=== PATIENT | male | born 1950 | race Caucasian/White ===

== ENCOUNTER → 2017-02-21 | Outpatient (CLI) | payer BC | LOC: MW.CHIM 08:45 | PROVIDERS: ATTEND Internal Medicine | DX: D64.9 Anemia, unspecified (principal) | CPT/HCPCS: 82270 ==

== ENCOUNTER 2017-10-31 06:40 | Inpatient (IN) | payer BC, MEDICARE ==
[2017-10-31] MEDS: Lactated Ringers 1,000 ML IV SCH ×3 (07:15→23:57)
[2017-10-31] MEDS ORDERED: ceFAZolin 2 GM in Premix Bag 1 BAG IV ONE (07:16)
[2017-10-31] MEDS ORDERED: diphenhydrAMINE 50 MG/ML SDV ONE (07:30)
[2017-10-31] MEDS ORDERED: Ondansetron 4 MG/2 ML SDV ONE (07:30)
[2017-10-31] MEDS ORDERED: Dexamethasone 4 MG/ML 5 ML MDV ONE (07:30)
[2017-10-31] MEDS ORDERED: Midazolam 1 MG/ML 2 ML SDV ONE (07:31)
[2017-10-31] MEDS ORDERED: Propofol 200 MG/20 ML SDV ONE (07:31)
[2017-10-31] MEDS ORDERED: fentaNYL 100 MCG/2 ML SDV ONE (07:31)
--- NOTE | 2017-10-31 07:42 | PCM.PREANE ---
Preanesthetic Assessment - Anesthesia/Transfusion/Family Hx Anesthesia History: Prior Anesthesia Without Reaction Other Type of Anesthesia Reaction Comment: spouse denies any known problem in past, no known fmly hx: prblms Family History of Anesthesia Reaction: No Transfusion History: No Prior Transfusion(s) - Review of Systems General: No Symptoms Pulmonary: No Symptoms Cardiovascular: No Symptoms Gastrointestinal: No Symptoms Neurological: No Symptoms Other: Reports: None - Physical Assessment Height: 1.85 m Weight: 115.666 kg ASA Class: 3 Mental Status: Alert & Oriented x3 Airway Class: Mallampati = 1 Dentition: Reports: Normal Dentition ROM/Head Extension: Full Lungs: Clear to Auscultation, Normal Respiratory Effort Cardiovascular: Regular Rate, Regular Rhythm - Lab Values: Laboratory Last Values POC Glucose 86 mg/dL (60-110) 10/31/17 07:24 - Allergies Allergies/Adverse Reactions: Allergies Allergy/AdvReac Type Severity Reaction Status Date / Time tuna Allergy Nausea Uncoded 12/07/14 14:16 - Anesthesia Plan Pre-Op Medication Ordered: None (PMH: has DDDR (rate resppnsive) pacemaker, will require disabeling of rate responsive function with a magnet during surgery. The magnet will place pacemaker into DOO mode with a fixed rate of 100. Other PMH: HTN, HLD, DM@ on oral hypoglycemics, blood sugar was 80 this am, GUSTAVO uses CPAP. ) - Acknowledgements Anesthesia Type Planned: General Anesthesia, Spinal Pt an Appropriate Candidate for the Planned Anesthesia: Yes Alternatives and Risks of Anesthesia Discussed w Pt/Guardian: Yes Pt/Guardian Understands and Agrees with Anesthesia Plan: Yes PreAnesthesia Questionnaire HEENT History: Reports: Other (See Below) Other HEENT History: reading glasses Cardiovascular History: Reports: Arrhythmia, High Cholesterol, Hypertension, Pacemaker Respiratory History: Reports: Sleep Apnea Other Respiratory History: uses CPAP Gastrointestinal History: Reports: None Musculoskeletal History: Reports: Osteoarthritis Other Musculoskeletal History: hx of hairline fx to thumb Neurological History: Reports: None Endocrine/Metabolic History: Reports: Diabetes, Type II, Obesity/BMI 30+ - Past Surgical History Head Surgeries/Procedures: Reports: None HEENT Surgical History: Reports: Tonsillectomy GI Surgical History: Reports: Appendectomy Neurological Surgical History: Reports: C-Spine Other Neurological Surgeries/Procedures: hx neck surgery - SUBSTANCE USE Smoking Status *Q: Never Smoker Days Per Week of Alcohol Use: 0 Recreational Drug Use History: No - HOME MEDS Home Medications: Home Meds Aspirin [Halfprin] 1 tab PO DAILY 12/07/14 [History] Cholecalciferol (Vitamin D3) [Vitamin D3] 1,000 unit PO DAILY 12/07/14 [History] Fish Oil/[place]-3 Fatty Acids [Fish Oil 1,000 MG] 1 tab PO DAILY 12/07/14 [ History] atorvaSTATin [Lipitor] 40 mg PO DAILY 12/07/14 [History] metFORMIN HCl [Metformin HCl] 1,000 tab PO BIDM 12/07/14 [History] Dulaglutide [Trulicity] 1 injection SUBCUT WEEKLY 10/30/17 [History] Lisinopril 10 mg PO DAILY 10/30/17 [History] - CURRENT (IN HOUSE) MEDS Current Meds: Current Medications Cefazolin Sodium/Dextrose 2 gm (/ Premix) 50 mls @ 50 mls/hr IV ONETIME ONE Stop: 10/31/17 08:15 Tranexamic Acid (Cyklokapron) 2,000 mg IV ONETIME ONE Stop: 10/31/17 08:01 Discontinued Medications Dexamethasone (Dexamethasone) Confirm Administered Dose 20 mg .ROUTE .STK-MED ONE Stop: 10/31/17 07:31 Diphenhydramine HCl (Benadryl) Confirm Administered Dose 50 mg .ROUTE .STK-MED ONE Stop: 10/31/17 07:31 Fentanyl (Sublimaze) Confirm Administered Dose 100 mcg .ROUTE .STK-MED ONE Stop: 10/31/17 07:32 Midazolam HCl (Versed 1 Mg/Ml) Confirm Administered Dose 2 mg .ROUTE .STK-MED ONE Stop: 10/31/17 07:32 Ondansetron HCl (Zofran) Confirm Administered Dose 4 mg .ROUTE .STK-MED ONE Stop: 10/31/17 07:31 Propofol (Diprivan 20 Ml) Confirm Administered Dose 800 mg .ROUTE .STK-MED ONE Stop: 10/31/17 07:32 Tranexamic Acid (Cyklokapron) Confirm Administered Dose 2,000 mg .ROUTE .STK- MED ONE Stop: 10/31/17 07:32
[2017-10-31] MEDS ORDERED: Phenylephrine/Normal Saline 100 MCG/ML 10 ML Syringe ONE (08:22)
[2017-10-31] MEDS ORDERED: Phenylephrine 1% 10 MG/ML SDV ONE (08:22)
--- NOTE | 2017-10-31 09:39 | PCM.OPNOTE ---
- General Post-Op/Procedure Note Date of Surgery/Procedure: 10/31/17 Operative Procedure(s): left anterior total hip arthroplasty Findings: severe OA Pre Op Diagnosis: left hip osteoarthritis Post-Op Diagnosis: same Anesthesia Technique: Spinal Primary Surgeon: Dick Dumont Mai Livestock Brands Inspector: Yanci Sharif Reason Livestock Brands Inspector Was Necessary: retraction, manipulating leg, reduction Pathology: femoral head EBL in mLs: 600 Complications: none Condition: Good
[2017-10-31] MEDS ORDERED: Bisacodyl 10 MG Supp RECTAL PRN (09:49)
[2017-10-31] MEDS ORDERED: Aluminum Hydroxide/Magnesium Hydroxide/Simethicone Susp 30 ML Cup PO PRN (09:49)
[2017-10-31] MEDS ORDERED: diphenhydrAMINE 25 MG Cap PO PRN (09:49)
[2017-10-31] MEDS ORDERED: Ondansetron 4 MG/2 ML SDV IV PRN (09:49)
[2017-10-31] MEDS ORDERED: TRULICITY SUBCUT SCH (10:00)
--- NOTE | 2017-10-31 11:30 | OR ---
SURGEON: Dick Ridley MD DATE OF PROCEDURE: 10/31/2017 GOLD FRAME ASSEMBLER: Yanci Sharif PA-C. PREOPERATIVE DIAGNOSIS: Left hip osteoarthritis. POSTOPERATIVE DIAGNOSIS: Left hip osteoarthritis. OPERATION PERFORMED: Left anterior total hip arthroplasty. ANESTHESIA: Spinal with sedation. COMPLICATIONS: None. ESTIMATED BLOOD LOSS: 600 mL. SPECIMENS: Femoral head. COMPLICATIONS: None. IMPLANT: Shira Continuum trabecular metal shell with cluster holes, 58 mm outer diameter, one 6.5 x 30 mm length bone screw, Vivacit-E neutral liner 36 mm inner diameter, M/L Taper hip stem, size 11, standard offset, and Biolox delta ceramic femoral head 36 mm diameter, -3.5 neck length. INDICATIONS: The patient is a 67-year-old male with severe bilateral arthritis worse on the left. He wished to undergo total hip arthroplasty. He understands the risks, benefits, alternatives, and complications of the procedure including, but not limited to infection, neurovascular injury, continued pain, DVT, PE, stroke, FL, , leg-length discrepancy, fracture, dislocation, and he wished to proceed. PEPITO Sharif was instrumental in case with reduction closing, and manipulation of the leg. DESCRIPTION OF PROCEDURE: The patient was seen in the preoperative area. The operative extremity was marked. The patient was transferred to the operating room, where spinal anesthetic was given. He was placed supine on the Barker table. Sedation was given. Legs were placed in the leg bars with narrow perineal post. The left hip was prepped and draped in a sterile fashion using alcohol followed by ChloraPrep with Ioban covering. A formal time-out was taken, identifying the correct patient, procedure, and extremity. He received preop antibiotics, Ancef, and also received 2 g of TXA. An 11 cm incision starting just laterally ASIS going obliquely down the femur was made. Dissection was carried down to subcutaneous tissues. Hemostasis was obtained. The fascia overlying the TFL was opened and the interval then between the TFL and sartorius was opened, staying lateral to the lateral femoral cutaneous nerve. The vastus lateralis fascia was opened and the anterior vessels were coagulated. A deep Manny tractor was placed. Capsule was held and tagged with 2 FiberWires and deep retractors were placed. The neck was cut from saddle region about 1 to 1.5 cm above the lesser trochanter and the head was removed. There was noted be severe arthritis. The inferior capsule was released and the pulvinar and labral remnants were removed. Under fluoroscopic control, the head measured about 53 mm. We sequentially broached from 53 up to 57 mm and then under fluoroscopic control after planing the bed to make sure it was level with Continuum trabecular metal shell cluster holes 58 mm outer diameter, with a screw hole straight superior was impacted in 40 degrees of abduction and 10 degrees of anteversion. There was no overhang of the cup anteriorly over the bone. Once straight superior bone screw was placed 30 mm in diameter after drilling, the wound was irrigated. The neutral liner was impacted into place. Attention was then paid to the femur. Femoral lift was placed. Leg was externally rotated, abducted, and extended. The central canal finder was utilized and the hip was sequentially broached following the nenana version from size 4 up to size 11. It was trial and reduced with standard offset zero neck length, printed overlay technique with fluoroscopy the opposite side showed essentially equal leg length and offset maybe 1 to 2 mm long. Hip was then dislocated. The stem showed good fit and fill at the end and then the final M/L taper size 11 standard offset stem was impacted. It was trial and reduced to zero neck length which showed about 4 to 5 mm long and therefore the hip was dislocated. A -3.5, Biolox delta ceramic femoral head was impacted after drying the [place] taper. Hip was relocated, finally reduced. There was equal offset leg length. Leg was maybe 1 to 2 mm long, however, he has severe arthritis on the other side. Two tag sutures were tied together. The wound was thoroughly irrigated. The fascia was closed with #1 Vicryl, subcutaneous tissues with 2-0 Stratafix. Skin was closed with running 4-0 Monocryl with Dermabond tape and Aquacel dressing were placed. The patient was transferred to recovery room in stable condition. Sponge and needle counts were correct at the end of the case. There were no complications. The patient will take aspirin for DVT prophylaxis. KOLBY WANG /[id number]
[2017-10-31] MEDS: Acetaminophen/HYDROcodone 325-5 MG Tab PO PRN ×4 (12:20→23:58)
[2017-10-31] MEDS: Insulin Aspart 100 Units/ML 3 ML Pen SUBCUT SCH ×2 (12:23→17:33)
[2017-10-31 12:27] LABS: CHLORIDE,CL 105 mmol/L (98-110); SODIUM,NA 136 mmol/L (136-146)
--- NOTE | 2017-10-31 12:46 | PCM.CONS ---
H&P History of Present Illness - General Date of Service: 10/31/17 Admit Problem/Dx: Admission Diagnosis/Problem Admission Diagnosis/Problem Hip replacement planned Source of Information: Patient, Old Records History Limitations: Reports: No Limitations - History of Present Illness Initial Comments - Free Text/Narative: This 67 year old male with pmh of dual chamber pacemaker placed 7 years ago for [place] Type II, HTN, and DM type 2 presented today for L anterior hip arthroplasty with Dr Ridley. He has returned from PACU. He reports a little bit of incisional pain starting, but otherwise is feeling good. Denies chest pain or SOB. No lightheadedness or dizziness. at bedside. Hospitalist service consulted for medical management. Pre-operatively, ECHO revealed LV EF 55-60%. A1 c was 6.1 and HTN was well controlled. PCP, Dr Allen. - Related Data Allergies/Adverse Reactions: Allergies Allergy/AdvReac Type Severity Reaction Status Date / Time tuna Allergy Nausea Uncoded 12/07/14 14:16 Home Medications: Home Meds Aspirin [Halfprin] 1 tab PO DAILY 12/07/14 [History] Cholecalciferol (Vitamin D3) [Vitamin D3] 1,000 unit PO DAILY 12/07/14 [History] Fish Oil/[place]-3 Fatty Acids [Fish Oil 1,000 MG] 1,200 tab PO DAILY 12/07/14 [ History] atorvaSTATin [Lipitor] 40 mg PO DAILY 12/07/14 [History] metFORMIN HCl [Metformin HCl] 1,000 tab PO BIDM 12/07/14 [History] Dulaglutide [Trulicity] 1 injection SUBCUT WEEKLY 10/30/17 [History] Lisinopril 10 mg PO BEDTIME 10/31/17 [History] Past Medical History HEENT History: Reports: Other (See Below) Other HEENT History: reading glasses Cardiovascular History: Reports: Arrhythmia, High Cholesterol, Hypertension, Pacemaker Respiratory History: Reports: Sleep Apnea. Denies: COPD Other Respiratory History: uses CPAP Gastrointestinal History: Reports: None Musculoskeletal History: Reports: Osteoarthritis Other Musculoskeletal History: hx of hairline fx to thumb Neurological History: Reports: None Psychiatric History: Reports: None Endocrine/Metabolic History: Reports: Diabetes, Type II, Obesity/BMI 30+ - Past Surgical History Head Surgeries/Procedures: Reports: None HEENT Surgical History: Reports: Tonsillectomy GI Surgical History: Reports: Appendectomy Neurological Surgical History: Reports: C-Spine Other Neurological Surgeries/Procedures: hx neck surgery Social & Family History - Tobacco Use Smoking Status *Q: Never Smoker Years of Tobacco use: 2 - Alcohol Use Days Per Week of Alcohol Use: 0 - Recreational Drug Use Recreational Drug Use: No Drug Use in Last 12 Months: No - Living Situation & Occupation Living situation: Reports: Occupation: Employed H&P Review of Systems - Review of Systems: Review Of Systems: See Below General: Reports: No Symptoms. Denies: Fever, Chills, Malaise, Weakness Pulmonary: Reports: No Symptoms. Denies: Shortness of Breath Cardiovascular: Reports: No Symptoms. Denies: Chest Pain, Edema, Lightheadedness Gastrointestinal: Reports: No Symptoms. Denies: Abdominal Pain, Black Stool, Bloody Stool, Nausea, Vomiting Skin: Reports: No Symptoms Psychiatric: Reports: No Symptoms Neurological: Reports: No Symptoms. Denies: Confusion Exam - Exam Exam: See Below - Vital Signs Vital Signs: Last Vital Signs Temp 99.0 F 10/31/17 09:45 Pulse 88 10/31/17 10:20 Resp 14 10/31/17 10:35 BP 95/59 L 10/31/17 10:35 Pulse Ox 95 10/31/17 10:35 Weight: 115.666 kg - Exam Quality Assessment: Supplemental Oxygen, Urinary Catheter, DVT Prophylaxis General: Alert, Oriented, Cooperative HEENT: Conjunctiva Clear, Mucosa Moist & [place], Pupils Reactive Neck: Supple, Trachea Midline, 2 Lungs: Clear to Auscultation, Normal Respiratory Effort Cardiovascular: Regular Rate, Regular Rhythm, Normal S1, Normal S2, Other ( pacemaker to L upper chest) GI/Abdominal Exam: Normal Bowel Sounds, Soft, Non-Tender, No Organomegaly, No Distention, No Abnormal Bruit, No Mass, Pelvis Stable Extremities: Normal Inspection, Normal Range of Motion, Non-Tender, No Pedal Edema, Normal Capillary Refill Neuro Extensive - Mental Status: Alert, Oriented x3, Normal Mood/Affect, Normal Cognition Psychiatric: Alert, Normal Affect, Normal Mood - Patient Data Lab Results Last 24 hrs: Laboratory Results - last 24 hr 10/31/17 10/31/17 10/31/17 Range/Units 07:24 10:17 11:43 WBC (4.0-11.0) K/uL RBC (4.50-5.90) M/uL Hgb (13.0-17.0) g/dL Hct (38.0-50.0) % MCV (80.0-98.0) fL MCH (27.0-32.0) pg MCHC (31.0-37.0) g/dL RDW Std Deviation (28.0-62.0) fl RDW Coeff of Nilsa (11.0-15.0) % Plt Count (150-400) K/uL MPV (7.40-12.00) fL Neut % (Auto) (48.0-80.0) % Lymph % (Auto) (16.0-40.0) % Clare % (Auto) (0.0-15.0) % Eos % (Auto) (0.0-7.0) % Baso % (Auto) (0.0-1.5) % Neut # (Auto) (1.4-5.7) K/uL Lymph # (Auto) (0.6-2.4) K/uL Clare # (Auto) (0.0-0.8) K/uL Eos # (Auto) (0.0-0.7) K/uL Baso # (Auto) (0.0-0.1) K/uL Nucleated RBC % /100WBC Nucleated RBCs # K/uL Sodium (136-146) mmol/L Potassium (3.5-5.1) mmol/L Chloride (98-110) mmol/L Carbon Dioxide (21-31) mmol/L BUN (6.0-23.0) mg/dL Creatinine (0.6-1.5) mg/dL Est Cr Clr Drug Dosing mL/min Estimated GFR (MDRD) ml/min Glucose (60-110) mg/dL POC Glucose 86 122 H 123 H (60-110) mg/dL Calcium (8.8-10.8) mg/dL 10/31/17 10/31/17 Range/Units 11:55 11:55 WBC 16.96 H (4.0-11.0) K/uL RBC 5.28 (4.50-5.90) M/uL Hgb 15.5 (13.0-17.0) g/dL Hct 46.2 (38.0-50.0) % MCV 87.5 (80.0-98.0) fL MCH 29.4 (27.0-32.0) pg MCHC 33.5 (31.0-37.0) g/dL RDW Std Deviation 44.1 (28.0-62.0) fl RDW Coeff of Nilsa 14 (11.0-15.0) % Plt Count 187 (150-400) K/uL MPV 11.10 (7.40-12.00) fL Neut % (Auto) 92.8 H (48.0-80.0) % Lymph % (Auto) 5.1 L (16.0-40.0) % Clare % (Auto) 1.8 (0.0-15.0) % Eos % (Auto) 0.2 (0.0-7.0) % Baso % (Auto) 0.1 (0.0-1.5) % Neut # (Auto) 15.7 H (1.4-5.7) K/uL Lymph # (Auto) 0.9 (0.6-2.4) K/uL Clare # (Auto) 0.3 (0.0-0.8) K/uL Eos # (Auto) 0.0 (0.0-0.7) K/uL Baso # (Auto) 0.0 (0.0-0.1) K/uL Nucleated RBC % 0.0 /100WBC Nucleated RBCs # 0 K/uL Sodium 136 (136-146) mmol/L Potassium 4.7 (3.5-5.1) mmol/L Chloride 105 (98-110) mmol/L Carbon Dioxide 23 (21-31) mmol/L BUN 21 (6.0-23.0) mg/dL Creatinine 0.7 (0.6-1.5) mg/dL Est Cr Clr Drug Dosing 112.56 mL/min Estimated GFR (MDRD) > 60.0 ml/min Glucose 125 H (60-110) mg/dL POC Glucose (60-110) mg/dL Calcium 8.9 (8.8-10.8) mg/dL Result Diagrams: 10/31/17 11:55 10/31/17 11:55 Consult PN Assessment/Plan Procedures: Procedures C/O FOR ORTHOTIC/PROSTH USE (02/07/15) CHEST X-RAY 2VW FRONTAL&LATL (10/15/17) COMPLETE CBC W/AUTO DIFF WBC (10/15/17) DIAGNOSTIC COLONOSCOPY (12/09/14) DRAIN/INJ JOINT/BURSA W/O US (08/26/17) ELECTROCARDIOGRAM TRACING (08/07/16) GLUCOSE BLOOD TEST (01/25/15) GLYCOSYLATED HEMOGLOBIN TEST (10/07/17) METABOLIC PANEL TOTAL CA (10/07/17) NEEDLE LOCALIZATION BY XRAY (08/26/17) OCCULT BLOOD FECES (05/26/17) ORTHOTIC MGMT&TRAINJ 1ST ENC (11/22/14) OT EVALUATION (03/31/15) PROTHROMBIN TIME (10/15/17) RECONSTRUCT FINGER JOINT (01/25/15) ROUTINE VENIPUNCTURE (10/15/17) TISSUE EXAM BY PATHOLOGIST (12/26/16) TISSUE EXAM BY PATHOLOGIST (12/26/16) TTE W/DOPPLER COMPLETE (08/28/17) URINALYSIS AUTO W/SCOPE (10/15/17) X-RAY EXAM HIP UNI 2-3 VIEWS (07/07/17) X-RAY EXAM OF FINGER(S) (11/21/14) (1) S/P total hip arthroplasty SNOMED Code(s): 424709789649 Code(s): Z96.649 - PRESENCE OF UNSPECIFIED ARTIFICIAL HIP JOINT Current Visit: Yes Qualifiers: Laterality: left Qualified Code(s): Z96.642 - Presence of left artificial hip joint (2) HTN (hypertension) SNOMED Code(s): 33557109 Code(s): I10 - ESSENTIAL (PRIMARY) HYPERTENSION Current Visit: Yes (3) DM type 2 (diabetes mellitus, type 2) SNOMED Code(s): 72790012 Code(s): E11.9 - TYPE 2 DIABETES MELLITUS WITHOUT COMPLICATIONS Current Visit: Yes Qualifiers: Diabetes mellitus complication status: without complication Diabetes mellitus terminal supervisor insulin use: without detention use Qualified Code(s): E11.9 - Type 2 diabetes mellitus without complications (4) Pacemaker SNOMED Code(s): 953082577 Code(s): Z95.0 - PRESENCE OF CARDIAC PACEMAKER Current Visit: Yes Problem List Initiated/Reviewed/Updated: Yes My Orders Last 24 Hours: My Active Orders 10/31/17 11:30 Insulin Aspart [NovoLOG] See Protocol SUBCUT TIDAC Plan: This 67 year old male admitted with L anterior hip arthroplasty, Hospitalist service consulted for medical management. 1. S/P L anterior hip arthroplasty: Orders and pain management per Dr Ridley and Ortho team 2. DM type 2: Well controlled. Hold Metformin post-operatively. Novolog SSI per protocol. BS TIDAC. May resume Metformin upon discharge. BMP WNL. 3. HTN: BP low post-operatively, 90s/60s. asymptomatic. Will monitor and Hold Lisinopril for now. Leukocytosis noted post-operatively, but was given Decadron intra-operatively. So this is likely due to steroid administration. No signs or symptoms of infection noted. VTE prophylaxis: Would recommended when deemed appropriate by Orthopedics.
--- NOTE | 2017-10-31 12:54 | PCM.POSTAN ---
POST ANESTHESIA ASSESSMENT - MENTAL STATUS Mental Status: Alert, Oriented - RESPIRATORY Respiratory Status: Respiratory Rate WNL, Airway Patent - CARDIOVASCULAR CV Status: Pulse Rate WNL, Blood Pressure Stable - GASTROINTESTINAL GI Status: No Symptoms - POST OP HYDRATION Hydration Status: Adequate & Stable
[2017-10-31] MEDS: Morphine 4 MG/ML Syringe IVPUSH PRN ×2 (15:44→19:35)
[2017-10-31] MEDS: ceFAZolin 2 GM in Premix Bag 1 BAG IV SCH ×2 (15:45→23:57)
[2017-10-31] MEDS ORDERED: metFORMIN 500 MG Tab PO SCH (17:00)
[2017-10-31] MEDS: Docusate Sodium 100 MG Cap PO SCH (20:08)
[2017-11-01] MEDS: Acetaminophen/HYDROcodone 325-5 MG Tab PO PRN ×2 (04:05→08:25)
--- NOTE | 2017-11-01 06:48 | PCM.CONSN ---
- General Info Date of Service: 11/01/17 Admission Dx/Problem (Free Text): Admission Diagnosis/Problem Admission Diagnosis/Problem Hip replacement planned Subjective Update: Doing well this am. Pain in left hip is well controlled. Has been up and ambulating. No complaints. Denies chest pain, palpitations, sob, syncopal events, or focal neuro deficits. Functional Status: Reports: Pain Controlled - Review of Systems General: Denies: Fever, Weakness, Fatigue HEENT: Denies: Dysphasia, Headaches, Visual Changes Pulmonary: Denies: Shortness of Breath, Pleuritic Chest Pain, Cough Cardiovascular: Denies: Chest Pain, Palpitations, Edema Gastrointestinal: Denies: Abdominal Pain, Nausea, Vomiting Genitourinary: Denies: Dysuria, Hematuria Musculoskeletal: Reports: Leg Pain. Denies: Neck Pain Neurological: Denies: Confusion Psychiatric: Denies: Confusion - Patient Data Vitals - Most Recent: Last Vital Signs Temp 97.2 F 11/01/17 04:00 Pulse 79 11/01/17 04:00 Resp 19 11/01/17 04:00 BP 116/58 L 11/01/17 04:00 Pulse Ox 97 11/01/17 04:00 Weight - Most Recent: 115.666 kg I&O - Last 24 Hours: Intake & Output 10/31/17 10/31/17 11/01/17 14:59 22:59 06:59 Intake Total 3130 800 2967 Output Total 400 200 Balance 3130 400 2767 Lab Results Last 24 Hours: Laboratory Results - last 24 hr 10/31/17 10/31/17 10/31/17 Range/Units 07:24 10:17 11:43 WBC (4.0-11.0) K/uL RBC (4.50-5.90) M/uL Hgb (13.0-17.0) g/dL Hct (38.0-50.0) % MCV (80.0-98.0) fL MCH (27.0-32.0) pg MCHC (31.0-37.0) g/dL RDW Std Deviation (28.0-62.0) fl RDW Coeff of [place]ils[place] (11.0-15.0) % Plt Count (150-400) K/uL MPV (7.40-12.00) fL Neut % (Auto) (48.0-80.0) % Lymph % (Auto) (16.0-40.0) % [place] % (Auto) (0.0-15.0) % Eos % (Auto) (0.0-7.0) % Baso % (Auto) (0.0-1.5) % Neut # (Auto) (1.4-5.7) K/uL Lymph # (Auto) (0.6-2.4) K/uL [place] # (Auto) (0.0-0.8) K/uL Eos # (Auto) (0.0-0.7) K/uL Baso # (Auto) (0.0-0.1) K/uL Nucleated RBC % /100WBC Nucleated RBCs # K/uL Sodium (136-146) mmol/L Potassium (3.5-5.1) mmol/L Chloride (98-110) mmol/L Carbon Dioxide (21-31) mmol/L BUN (6.0-23.0) mg/dL Creatinine (0.6-1.5) mg/dL Est Cr Clr Drug Dosing mL/min Estimated GFR (MDRD) ml/min Glucose (60-110) mg/dL POC Glucose 86 122 H 123 H (60-110) mg/dL Calcium (8.8-10.8) mg/dL 10/31/17 10/31/17 10/31/17 Range/Units 11:55 11:55 16:27 WBC 16.96 H (4.0-11.0) K/uL RBC 5.28 (4.50-5.90) M/uL Hgb 15.5 (13.0-17.0) g/dL Hct 46.2 (38.0-50.0) % MCV 87.5 (80.0-98.0) fL MCH 29.4 (27.0-32.0) pg MCHC 33.5 (31.0-37.0) g/dL RDW Std Deviation 44.1 (28.0-62.0) fl RDW Coeff of Nilsa 14 (11.0-15.0) % Plt Count 187 (150-400) K/uL MPV 11.10 (7.40-12.00) fL Neut % (Auto) 92.8 H (48.0-80.0) % Lymph % (Auto) 5.1 L (16.0-40.0) % [place] % (Auto) 1.8 (0.0-15.0) % Eos % (Auto) 0.2 (0.0-7.0) % Baso % (Auto) 0.1 (0.0-1.5) % Neut # (Auto) 15.7 H (1.4-5.7) K/uL Lymph # (Auto) 0.9 (0.6-2.4) K/uL [place] # (Auto) 0.3 (0.0-0.8) K/uL Eos # (Auto) 0.0 (0.0-0.7) K/uL Baso # (Auto) 0.0 (0.0-0.1) K/uL Nucleated RBC % 0.0 /100WBC Nucleated RBCs # 0 K/uL Sodium 136 (136-146) mmol/L Potassium 4.7 (3.5-5.1) mmol/L Chloride 105 (98-110) mmol/L Carbon Dioxide 23 (21-31) mmol/L BUN 21 (6.0-23.0) mg/dL Creatinine 0.7 (0.6-1.5) mg/dL Est Cr Clr Drug Dosing 112.56 mL/min Estimated GFR (MDRD) > 60.0 ml/min Glucose 125 H (60-110) mg/dL POC Glucose 181 H (60-110) mg/dL Calcium 8.9 (8.8-10.8) mg/dL 11/01/17 Range/Units 06:41 WBC (4.0-11.0) K/uL RBC (4.50-5.90) M/uL Hgb (13.0-17.0) g/dL Hct (38.0-50.0) % MCV (80.0-98.0) fL MCH (27.0-32.0) pg MCHC (31.0-37.0) g/dL RDW Std Deviation (28.0-62.0) fl RDW Coeff of Nilsa (11.0-15.0) % Plt Count (150-400) K/uL MPV (7.40-12.00) fL Neut % (Auto) (48.0-80.0) % Lymph % (Auto) (16.0-40.0) % [place] % (Auto) (0.0-15.0) % Eos % (Auto) (0.0-7.0) % Baso % (Auto) (0.0-1.5) % Neut # (Auto) (1.4-5.7) K/uL Lymph # (Auto) (0.6-2.4) K/uL [place] # (Auto) (0.0-0.8) K/uL Eos # (Auto) (0.0-0.7) K/uL Baso # (Auto) (0.0-0.1) K/uL Nucleated RBC % /100WBC Nucleated RBCs # K/uL Sodium (136-146) mmol/L Potassium (3.5-5.1) mmol/L Chloride (98-110) mmol/L Carbon Dioxide (21-31) mmol/L BUN (6.0-23.0) mg/dL Creatinine (0.6-1.5) mg/dL Est Cr Clr Drug Dosing mL/min Estimated GFR (MDRD) ml/min Glucose (60-110) mg/dL POC Glucose 120 H (60-110) mg/dL Calcium (8.8-10.8) mg/dL Med Orders - Current: Current Medications Hydrocodone Bitart/Acetaminophen ([place] 325-5 Mg) 1 - 2 tab PO Q4H PRN PRN Reason: Pain Last Admin: 11/01/17 04:05 Dose: 2 tab Al Hydroxide/Mg Hydroxide (Mag-Al Plus) 30 ml PO Q4H PRN PRN Reason: indigestion Aspirin (Ecotrin) 325 mg PO BID [facility] Atorvastatin Calcium (Lipitor) 40 mg PO DAILY [facility] Bisacodyl (Dulcolax) 10 mg RECTAL DAILY PRN PRN Reason: Constipation Cholecalciferol (Vitamin D3) 1,000 units PO DAILY [facility] Diphenhydramine HCl (Benadryl) 25 - 50 mg PO Q6H PRN PRN Reason: Itching Docusate Sodium (Colace) 100 mg PO BID [facility] Last Admin: 10/31/17 20:08 Dose: 100 mg Fish Oil (Fish Oil) 1 gm PO DAILY [facility] Lactated Ringer's (Ringers, Lactated) 1,000 mls @ 100 mls/hr IV ASDIRECTED [facility] Last Admin: 10/31/17 23:57 Dose: 100 mls/hr Insulin Aspart (Novolog) 0 unit SUBCUT TIDAC [facility] PRN Reason: Protocol Last Admin: 10/31/17 17:33 Dose: 1 unit Morphine Sulfate (Morphine) 1 - 3 mg IVPUSH Q3H PRN PRN Reason: Pain Last Admin: 10/31/17 19:35 Dose: 2 mg Ondansetron HCl (Zofran) 4 mg IV Q6HR PRN PRN Reason: NAUSEA/VOMITING Trulicity 1 each SUBCUT Mo@0800 [facility] Discontinued Medications Dexamethasone (Dexamethasone) Confirm Administered Dose 20 mg .ROUTE .STK-MED ONE Stop: 10/31/17 07:31 Diphenhydramine HCl (Benadryl) Confirm Administered Dose 50 mg .ROUTE .STK-MED ONE Stop: 10/31/17 07:31 Fentanyl (Sublimaze) Confirm Administered Dose 100 mcg .ROUTE .STK-MED ONE Stop: 10/31/17 07:32 Cefazolin Sodium/Dextrose 2 gm (/ Premix) 50 mls @ 50 mls/hr IV ONETIME ONE Stop: 10/31/17 08:15 Last Admin: 10/31/17 10:44 Dose: Not Given Cefazolin Sodium/Dextrose 2 gm (/ Premix) 50 mls @ 100 mls/hr IV Q8H [facility] Stop: 11/01/17 00:29 Last Admin: 10/31/17 23:57 Dose: 100 mls/hr Metformin HCl (Glucophage) 500 mg PO BIDM [facility] Midazolam HCl (Versed 1 Mg/Ml) Confirm Administered Dose 2 mg .ROUTE .STK-MED ONE Stop: 10/31/17 07:32 Ondansetron HCl (Zofran) Confirm Administered Dose 4 mg .ROUTE .STK-MED ONE Stop: 10/31/17 07:31 Trulicity 1 each SUBCUT Q7D [facility] Last Admin: 10/31/17 13:24 Dose: Not Given Phenylephrine HCl (Phenylephrine In Ns 100 Mcg/Ml) Confirm Administered Dose 1 mg .ROUTE .STK-MED ONE Stop: 10/31/17 08:23 Phenylephrine HCl (Luiz-Synephrine) Confirm Administered Dose 10 mg .ROUTE .STK- MED ONE Stop: 10/31/17 08:23 Propofol (Diprivan 20 Ml) Confirm Administered Dose 800 mg .ROUTE .STK-MED ONE Stop: 10/31/17 07:32 Tranexamic Acid (Cyklokapron) 2,000 mg IV ONETIME ONE Stop: 10/31/17 08:01 Last Admin: 10/31/17 10:51 Dose: Not Given Tranexamic Acid (Cyklokapron) Confirm Administered Dose 2,000 mg .ROUTE .STK- MED ONE Stop: 10/31/17 07:32 - Exam Quality Assessment: DVT Prophylaxis General: Alert, Oriented, Cooperative, No Acute Distress HEENT: Pupils Equal, Pupils Reactive, EOMI, Mucous Membr. Moist/[place] Neck: Supple, Trachea Midline Lungs: Clear to Auscultation, Normal Respiratory Effort Cardiovascular: Regular Rate, Regular Rhythm, No Murmurs GI/Abdominal Exam: Normal Bowel Sounds, Soft, Non-Tender, No Organomegaly, No Distention Back Exam: Normal Inspection Extremities: No Pedal Edema, Normal Capillary Refill. No: Marielos's Sign Peripheral Pulses: 2+: Radial (L), Radial (R), Posterior Tibial (L), Posterior Tibial (R), Dorsalis Pedis (L), Dorsalis Pedis (R) Skin: Warm, Dry, Intact Wound/Incisions: Healing Well Neurological: No New Focal Deficit Psy/Mental Status: Alert, Normal Affect, Normal Mood Consult PN Assessment/Plan Procedures: Procedures C/O FOR ORTHOTIC/PROSTH USE (02/07/15) CHEST X-RAY 2VW FRONTAL&LATL (10/15/17) COMPLETE CBC W/AUTO DIFF WBC (10/15/17) DIAGNOSTIC COLONOSCOPY (12/09/14) DRAIN/INJ JOINT/BURSA W/O US (08/26/17) ELECTROCARDIOGRAM TRACING (08/07/16) GLUCOSE BLOOD TEST (01/25/15) GLYCOSYLATED HEMOGLOBIN TEST (10/07/17) METABOLIC PANEL TOTAL CA (10/07/17) NEEDLE LOCALIZATION BY XRAY (08/26/17) OCCULT BLOOD FECES (05/26/17) ORTHOTIC MGMT&TRAINJ 1ST ENC (11/22/14) OT EVALUATION (03/31/15) PROTHROMBIN TIME (10/15/17) RECONSTRUCT FINGER JOINT (01/25/15) ROUTINE VENIPUNCTURE (10/15/17) TISSUE EXAM BY PATHOLOGIST (12/26/16) TISSUE EXAM BY PATHOLOGIST (12/26/16) TTE W/DOPPLER COMPLETE (08/28/17) URINALYSIS AUTO W/SCOPE (10/15/17) X-RAY EXAM HIP UNI 2-3 VIEWS (07/07/17) X-RAY EXAM OF FINGER(S) (11/21/14) (1) DM type 2 (diabetes mellitus, type 2) SNOMED Code(s): 70259447 Code(s): E11.9 - TYPE 2 DIABETES MELLITUS WITHOUT COMPLICATIONS Current Visit: Yes Qualifiers: Diabetes mellitus complication status: without complication Diabetes mellitus exterminator helper insulin use: without chcf use Qualified Code(s): E11.9 - Type 2 diabetes mellitus without complications (2) HTN (hypertension) SNOMED Code(s): 05253117 Code(s): I10 - ESSENTIAL (PRIMARY) HYPERTENSION Current Visit: Yes Qualifiers: Hypertension type: essential hypertension Qualified Code(s): I10 - Essential (primary) hypertension (3) Pacemaker SNOMED Code(s): 112496670 Code(s): Z95.0 - PRESENCE OF CARDIAC PACEMAKER Current Visit: Yes (4) S/P total hip arthroplasty SNOMED Code(s): 663792489813 Code(s): Z96.649 - PRESENCE OF UNSPECIFIED ARTIFICIAL HIP JOINT Priority: High Current Visit: Yes Qualifiers: Laterality: left Qualified Code(s): Z96.642 - Presence of left artificial hip joint Problem List Initiated/Reviewed/Updated: Yes Plan: 67 year old male admitted with L anterior hip arthroplasty, Hospitalist service consulted for medical management. 1. S/P L anterior hip arthroplasty: Orders and pain management per Dr Ridley and Ortho team 2. DM type 2: Well controlled. Novolog SSI per protocol. BS TIDAC. May resume Metformin upon discharge. BMP WNL. 3. HTN: Stable will restart home Lisinopril. Leukocytosis noted post-operatively, but was given Decadron intra-operatively. Likely due to steroid administration. No signs or symptoms of infection noted. Improved this morning. VTE prophylaxis: Would recommended when deemed appropriate by Orthopedics.
[2017-11-01] MEDS: Insulin Aspart 100 Units/ML 3 ML Pen SUBCUT SCH (06:50)
[2017-11-01 06:55] LABS: CHLORIDE,CL 102 mmol/L (98-110); SODIUM,NA 133 mmol/L (136-146)
[2017-11-01] MEDS: Docusate Sodium 100 MG Cap PO SCH (08:25)
[2017-11-01] MEDS ORDERED: Aspirin 325 MG Tab.EC PO SCH (09:00)
[2017-11-01] MEDS ORDERED: Cholecalciferol (Vitamin D3) 1,000 Unit Tab PO SCH (09:00)
[2017-11-01] MEDS ORDERED: Fish Oil/Omega-3 Fatty Acids 1 Gm Cap PO SCH (09:00)
[2017-11-01] MEDS ORDERED: atorvaSTATin 40 MG Tab PO SCH (09:00)
[2017-11-01] MEDS ORDERED: Gabapentin 300 MG Cap PO SCH (09:15)
--- NOTE | 2017-11-01 10:00 | PCM.SN ---
- Free Text/Narrative Note: Subjective: Patient is overall doing very well. He is ambulating in the hallway with walker area. His pain is well controlled. He is having minimal issues. No chest pain or shortness of breath. Objective: Afebrile, vital signs stable Dressing is clean dry and intact. He has met minimal swelling in the thigh and none distally. He has normal sensation and motor distally with a palpable pedal pulse. Hemoglobin 13.6 Assessment/plan: Postoperative day #1 left total hip arthroplasty - Weight bearing as tolerated with physical therapy and walker transitioning to cane. - SCDs and aspirin for DVT prophylaxis. - Plan to go home today. He will follow-up in 2 weeks.
--- NOTE | 2017-11-01 10:03 | PCM.DCSUM1 ---
Discharge Summary - Hospital Course Brief History: Patient is admitted for elective left total hip arthroplasty. He is failed conservative management - Discharge Data Discharge Date: 11/01/17 Discharge Disposition: Home, Self-Care 01 Condition: Good - Patient Summary/Data Operative Procedure(s) Performed: left anterior total hip arthroplasty Consults: Consultations 10/31/17 09:45 Consult to Physician [CONS] Routine PT Evaluation and Treatment [CONS] Routine Hospital Course: Patient was admitted and underwent uneventful total hip arthroplasty. Postoperatively he was admitted to the floor and his pain was controlled and his diet was advanced to participate in physical therapy with weightbearing as tolerated. He did well and the subsequent discharge to home on postoperative day #1. - Patient Instructions Diet: Usual Diet as Tolerated Activity: As Tolerated Activity, Other: with walker Driving, Other: may drive when off pain meds Showering/Bathing: May Shower Wound/Incision Care: Do NOT Change Dressing Notify Provider of: Fever, Swelling and Redness, Drainage - Discharge Plan Home Medications: Home Meds Aspirin [Halfprin] 1 tab PO DAILY 12/07/14 [History] Cholecalciferol (Vitamin D3) [Vitamin D3] 2,000 unit PO DAILY 12/07/14 [History] Fish Oil/[place]-3 Fatty Acids [Fish Oil 1,000 MG] 1,200 tab PO DAILY 12/07/14 [ History] atorvaSTATin [Lipitor] 40 mg PO DAILY 12/07/14 [History] metFORMIN HCl [Metformin HCl] 1,000 tab PO BID@07,19 12/07/14 [History] Dulaglutide [Trulicity] 1 injection SUBCUT WEEKLY 10/30/17 [History] Ascorbate Calcium [Vitamin C] 500 mg PO DAILY 10/31/17 [History] Empagliflozin [Jardiance] 25 mg PO DAILY 10/31/17 [History] Gabapentin [Neurontin] 300 mg PO DAILY 10/31/17 [History] Lisinopril 10 mg PO BEDTIME 10/31/17 [History] Multivit-Min/FA/Lycopene/Lut [Centrum Silver Tablet] 1 tab PO DAILY 10/31/17 [ History] Vitamin E 1,000 units PO DAILY 10/31/17 [History] Patient Handouts: Total Hip Replacement, Care After, Paet-dt-Uabs Referrals: Yanci Sharif PA [Physician Rn Practitioner] - 11/10/17 9:45 am - Discharge Summary/Plan Comment DC Time >30 min.: No - Patient Data Vitals - Most Recent: Last Vital Signs Temp 36.2 C 11/01/17 04:00 Pulse 79 11/01/17 04:00 Resp 19 11/01/17 04:00 BP 116/58 L 11/01/17 04:00 Pulse Ox 97 11/01/17 04:00 Weight - Most Recent: 115.666 kg I&O - Last 24 hours: Intake & Output 10/31/17 11/01/17 11/01/17 22:59 06:59 14:59 Intake Total 800 2967 Output Total 400 200 Balance 400 2767 Lab Results - Last 24 hrs: Laboratory Results - last 24 hr 10/31/17 10/31/17 10/31/17 Range/Units 10:17 11:43 11:55 WBC 16.96 H (4.0-11.0) K/uL RBC 5.28 (4.50-5.90) M/uL Hgb 15.5 (13.0-17.0) g/dL Hct 46.2 (38.0-50.0) % MCV 87.5 (80.0-98.0) fL MCH 29.4 (27.0-32.0) pg MCHC 33.5 (31.0-37.0) g/dL RDW Std Deviation 44.1 (28.0-62.0) fl RDW Coeff of Nilsa 14 (11.0-15.0) % Plt Count 187 (150-400) K/uL MPV 11.10 (7.40-12.00) fL Neut % (Auto) 92.8 H (48.0-80.0) % Lymph % (Auto) 5.1 L (16.0-40.0) % [place] % (Auto) 1.8 (0.0-15.0) % Eos % (Auto) 0.2 (0.0-7.0) % Baso % (Auto) 0.1 (0.0-1.5) % Neut # (Auto) 15.7 H (1.4-5.7) K/uL Lymph # (Auto) 0.9 (0.6-2.4) K/uL [place] # (Auto) 0.3 (0.0-0.8) K/uL Eos # (Auto) 0.0 (0.0-0.7) K/uL Baso # (Auto) 0.0 (0.0-0.1) K/uL Add Manual Diff Neutrophils % (Manual) (48.0-80.0) % Band Neutrophils % % Lymphocytes % (Manual) (16.0-40.0) % Monocytes % (Manual) (0.0-15.0) % Nucleated RBC % 0.0 /100WBC Absolute Seg Neuts (1.4-5.7) Band Neutrophils # Lymphocytes # (Manual) (0.6-2.4) Monocytes # (Manual) (0.0-0.8) Nucleated RBCs # 0 K/uL Sodium (136-146) mmol/L Potassium (3.5-5.1) mmol/L Chloride (98-110) mmol/L Carbon Dioxide (21-31) mmol/L BUN (6.0-23.0) mg/dL Creatinine (0.6-1.5) mg/dL Est Cr Clr Drug Dosing mL/min Estimated GFR (MDRD) ml/min Glucose (60-110) mg/dL POC Glucose 122 H 123 H (60-110) mg/dL Calcium (8.8-10.8) mg/dL 10/31/17 10/31/17 11/01/17 Range/Units 11:55 16:27 06:25 WBC 11.82 H (4.0-11.0) K/uL RBC 4.72 (4.50-5.90) M/uL Hgb 13.6 (13.0-17.0) g/dL Hct 40.9 (38.0-50.0) % MCV 86.7 (80.0-98.0) fL MCH 28.8 (27.0-32.0) pg MCHC 33.3 (31.0-37.0) g/dL RDW Std Deviation 43.8 (28.0-62.0) fl RDW Coeff of Nilsa 14 (11.0-15.0) % Plt Count 161 (150-400) K/uL MPV 11.10 (7.40-12.00) fL Neut % (Auto) (48.0-80.0) % Lymph % (Auto) (16.0-40.0) % [place] % (Auto) (0.0-15.0) % Eos % (Auto) (0.0-7.0) % Baso % (Auto) (0.0-1.5) % Neut # (Auto) (1.4-5.7) K/uL Lymph # (Auto) (0.6-2.4) K/uL [place] # (Auto) (0.0-0.8) K/uL Eos # (Auto) (0.0-0.7) K/uL Baso # (Auto) (0.0-0.1) K/uL Add Manual Diff YES Neutrophils % (Manual) 73 (48.0-80.0) % Band Neutrophils % 9 % Lymphocytes % (Manual) 10 L (16.0-40.0) % Monocytes % (Manual) 8 (0.0-15.0) % Nucleated RBC % 0.0 /100WBC Absolute Seg Neuts 8.6 H (1.4-5.7) Band Neutrophils # 1.1 Lymphocytes # (Manual) 1.2 (0.6-2.4) Monocytes # (Manual) 0.9 H (0.0-0.8) Nucleated RBCs # 0 K/uL Sodium 136 (136-146) mmol/L Potassium 4.7 (3.5-5.1) mmol/L Chloride 105 (98-110) mmol/L Carbon Dioxide 23 (21-31) mmol/L BUN 21 (6.0-23.0) mg/dL Creatinine 0.7 (0.6-1.5) mg/dL Est Cr Clr Drug Dosing 112.56 mL/min Estimated GFR (MDRD) > 60.0 ml/min Glucose 125 H (60-110) mg/dL POC Glucose 181 H (60-110) mg/dL Calcium 8.9 (8.8-10.8) mg/dL 11/01/17 11/01/17 Range/Units 06:25 06:41 WBC (4.0-11.0) K/uL RBC (4.50-5.90) M/uL Hgb (13.0-17.0) g/dL Hct (38.0-50.0) % MCV (80.0-98.0) fL MCH (27.0-32.0) pg MCHC (31.0-37.0) g/dL RDW Std Deviation (28.0-62.0) fl RDW Coeff of Nilsa (11.0-15.0) % Plt Count (150-400) K/uL MPV (7.40-12.00) fL Neut % (Auto) (48.0-80.0) % Lymph % (Auto) (16.0-40.0) % [place] % (Auto) (0.0-15.0) % Eos % (Auto) (0.0-7.0) % Baso % (Auto) (0.0-1.5) % Neut # (Auto) (1.4-5.7) K/uL Lymph # (Auto) (0.6-2.4) K/uL [place] # (Auto) (0.0-0.8) K/uL Eos # (Auto) (0.0-0.7) K/uL Baso # (Auto) (0.0-0.1) K/uL Add Manual Diff Neutrophils % (Manual) (48.0-80.0) % Band Neutrophils % % Lymphocytes % (Manual) (16.0-40.0) % Monocytes % (Manual) (0.0-15.0) % Nucleated RBC % /100WBC Absolute Seg Neuts (1.4-5.7) Band Neutrophils # Lymphocytes # (Manual) (0.6-2.4) Monocytes # (Manual) (0.0-0.8) Nucleated RBCs # K/uL Sodium 133 L (136-146) mmol/L Potassium 4.0 (3.5-5.1) mmol/L Chloride 102 (98-110) mmol/L Carbon Dioxide 22 (21-31) mmol/L BUN 18 (6.0-23.0) mg/dL Creatinine 0.7 (0.6-1.5) mg/dL Est Cr Clr Drug Dosing 112.02 mL/min Estimated GFR (MDRD) > 60.0 ml/min Glucose 124 H (60-110) mg/dL POC Glucose 120 H (60-110) mg/dL Calcium 8.6 L (8.8-10.8) mg/dL Med Orders - Current: Current Medications Hydrocodone Bitart/Acetaminophen ([place] 325-5 Mg) 1 - 2 tab PO Q4H PRN PRN Reason: Pain Last Admin: 11/01/17 08:25 Dose: 2 tab Al Hydroxide/Mg Hydroxide (Mag-Al Plus) 30 ml PO Q4H PRN PRN Reason: indigestion Aspirin (Ecotrin) 325 mg PO BID [facility] Last Admin: 11/01/17 08:25 Dose: 325 mg Atorvastatin Calcium (Lipitor) 40 mg PO DAILY [facility] Last Admin: 11/01/17 08:25 Dose: 40 mg Bisacodyl (Dulcolax) 10 mg RECTAL DAILY PRN PRN Reason: Constipation Cholecalciferol (Vitamin D3) 1,000 units PO DAILY [facility] Last Admin: 11/01/17 08:25 Dose: 1,000 units Diphenhydramine HCl (Benadryl) 25 - 50 mg PO Q6H PRN PRN Reason: Itching Docusate Sodium (Colace) 100 mg PO BID [facility] Last Admin: 11/01/17 08:25 Dose: 100 mg Fish Oil (Fish Oil) 1 gm PO DAILY [facility] Last Admin: 11/01/17 08:25 Dose: 1 gm Gabapentin (Neurontin) 300 mg PO DAILY [facility] Insulin Aspart (Novolog) 0 unit SUBCUT TIDAC [facility] PRN Reason: Protocol Last Admin: 11/01/17 06:50 Dose: Not Given Lisinopril (Prinivil) 10 mg PO BEDTIME [facility] Morphine Sulfate (Morphine) 1 - 3 mg IVPUSH Q3H PRN PRN Reason: Pain Last Admin: 10/31/17 19:35 Dose: 2 mg Ondansetron HCl (Zofran) 4 mg IV Q6HR PRN PRN Reason: NAUSEA/VOMITING Trulicity 1 each SUBCUT Mo@0800 [facility] Discontinued Medications Dexamethasone (Dexamethasone) Confirm Administered Dose 20 mg .ROUTE .STK-MED ONE Stop: 10/31/17 07:31 Diphenhydramine HCl (Benadryl) Confirm Administered Dose 50 mg .ROUTE .STK-MED ONE Stop: 10/31/17 07:31 Fentanyl (Sublimaze) Confirm Administered Dose 100 mcg .ROUTE .STK-MED ONE Stop: 10/31/17 07:32 Cefazolin Sodium/Dextrose 2 gm (/ Premix) 50 mls @ 50 mls/hr IV ONETIME ONE Stop: 10/31/17 08:15 Last Admin: 10/31/17 10:44 Dose: Not Given Lactated Ringer's (Ringers, Lactated) 1,000 mls @ 100 mls/hr IV ASDIRECTED [facility] Last Admin: 10/31/17 23:57 Dose: 100 mls/hr Cefazolin Sodium/Dextrose 2 gm (/ Premix) 50 mls @ 100 mls/hr IV Q8H [facility] Stop: 11/01/17 00:29 Last Admin: 10/31/17 23:57 Dose: 100 mls/hr Metformin HCl (Glucophage) 500 mg PO BIDM [facility] Midazolam HCl (Versed 1 Mg/Ml) Confirm Administered Dose 2 mg .ROUTE .STK-MED ONE Stop: 10/31/17 07:32 Ondansetron HCl (Zofran) Confirm Administered Dose 4 mg .ROUTE .STK-MED ONE Stop: 10/31/17 07:31 Trulicity 1 each SUBCUT Q7D [facility] Last Admin: 10/31/17 13:24 Dose: Not Given Phenylephrine HCl (Phenylephrine In Ns 100 Mcg/Ml) Confirm Administered Dose 1 mg .ROUTE .STK-MED ONE Stop: 10/31/17 08:23 Phenylephrine HCl (Luiz-Synephrine) Confirm Administered Dose 10 mg .ROUTE .STK- MED ONE Stop: 10/31/17 08:23 Propofol (Diprivan 20 Ml) Confirm Administered Dose 800 mg .ROUTE .STK-MED ONE Stop: 10/31/17 07:32 Tranexamic Acid (Cyklokapron) 2,000 mg IV ONETIME ONE Stop: 10/31/17 08:01 Last Admin: 10/31/17 10:51 Dose: Not Given Tranexamic Acid (Cyklokapron) Confirm Administered Dose 2,000 mg .ROUTE .STK- MED ONE Stop: 10/31/17 07:32 *Q Meaningful Use (DIS) - VTE *Q VTE Criteria *Q: - Stroke *Q Stroke Criteria *Q: - AMI *Q AMI Criteria *Q:
[2017-11-01 11:34] VITALS: BP 115/63
[2017-11-01] MEDS ORDERED: Lisinopril 10 MG Tab PO SCH (21:00)
[2017-11-03] MEDS ORDERED: TRULICITY SUBCUT SCH (08:00)
--- NOTE | 2017-11-03 09:08 | CR ---
EXAMINATION: Left hip HISTORY: Arthroplasty COMPARISON: None TECHNIQUE: 4 fluoroscopic images provided FINDINGS/IMPRESSION: Operative control films demonstrate left total hip hardware in good position and alignment.
== END 2017-11-01 11:20 | disposition home or self-care (01) | DRG 301 ==
LOC: MW.MS 06:40
PROVIDERS: ADMIT Orthopaedic Surgery; ATTEND Orthopaedic Surgery
PROC: 0SRB0JZ Replacement of Left Hip Joint with Synthetic Substitute, Open Approach (ICD-10-PCS; principal; 2017-10-31)
DX: M16.12 Unilateral primary osteoarthritis, left hip (principal); I44.1 Atrioventricular block, second degree; I10 Essential (primary) hypertension; E11.9 Type 2 diabetes mellitus without complications; E78.00 Pure hypercholesterolemia, unspecified; D72.829 Elevated white blood cell count, unspecified; Z79.899 Other long term (current) drug therapy; Z95.0 Presence of cardiac pacemaker
CPT/HCPCS: 01214; 36415; 76000; 76000-26; 80048; 82962; 85025; 88305; 88311; 97110-GP; 97116-GP; 97161-GP; 97530-GP; A9270-GY; C1713; C1776; J0690; J1100; J1200; J1815-GY; J2250; J2270; J2370; J2405; J2704; J3010; J7120

== ENCOUNTER 2019-05-17 08:41 | Day surgery (SDC) | payer BC, MEDICARE ==
[~2019-05-17 08:41] MED LIST: Lactated Ringers 1,000 ML IV SCH; Lidocaine 2% 5 ML SDV ONE; Propofol 200 MG/20 ML SDV ONE; cefOXitin 2 GM in Premix Bag 1 BAG IV ONE; fentaNYL 100 MCG/2 ML SDV ONE
--- NOTE | 2019-05-17 09:38 | PCM.PREANE ---
Preanesthetic Assessment - Anesthesia/Transfusion/Family Hx Anesthesia History: Prior Anesthesia Without Reaction Other Type of Anesthesia Reaction Comment: spouse denies any known problem in past, no known fmly hx: prblms Family History of Anesthesia Reaction: No Transfusion History: No Prior Transfusion(s) - Review of Systems General: No Symptoms Pulmonary: No Symptoms Cardiovascular: No Symptoms Gastrointestinal: No Symptoms Neurological: No Symptoms Other: Reports: None - Physical Assessment Height: 6 ft Weight: 118.841 kg ASA Class: 3 Mental Status: Alert & Oriented x3 Airway Class: Mallampati = 2 Dentition: Reports: Normal Dentition ROM/Head Extension: Full Lungs: Clear to Auscultation, Normal Respiratory Effort Cardiovascular: Regular Rate, Regular Rhythm - Lab Values: Laboratory Last Values POC Glucose 91 mg/dL (60-110) 05/17/19 09:29 - Allergies Allergies/Adverse Reactions: Allergies Allergy/AdvReac Type Severity Reaction Status Date / Time tuna Allergy Nausea Uncoded 12/07/14 14:16 - Blood Blood Available: No - Acknowledgements Anesthesia Type Planned: General Anesthesia Pt an Appropriate Candidate for the Planned Anesthesia: Yes Alternatives and Risks of Anesthesia Discussed w Pt/Guardian: Yes Pt/Guardian Understands and Agrees with Anesthesia Plan: Yes Additional Comments: anes prob list: dm2- glucose this am=90, GUSTAVO-use cpap, htn, s/p TKA, on gabipentin, 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- tested 30 d ago- 12-18 mo left on battery PLAN: tiva PreAnesthesia Questionnaire HEENT History: Reports: Hard of Hearing Other HEENT History: uses reading glasses and has bilateral hearing aides Cardiovascular History: Reports: Arrhythmia, High Cholesterol, Hypertension, Pacemaker Respiratory History: Reports: Sleep Apnea Other Respiratory History: uses CPAP Gastrointestinal History: Reports: Colon Polyp, Diverticulosis Genitourinary History: Reports: Renal Calculus Musculoskeletal History: Reports: Fracture Other Musculoskeletal History: hx of fx left thumb Neurological History: Reports: None Psychiatric History: Reports: None Endocrine/Metabolic History: Reports: Diabetes, Type II, Obesity/BMI 30+ Hematologic History: Reports: Anemia - Past Surgical History Head Surgeries/Procedures: Reports: None HEENT Surgical History: Reports: Tonsillectomy Cardiovascular Surgical History: Reports: Pacer GI Surgical History: Reports: Appendectomy, Colonoscopy Neurological Surgical History: Reports: C-Spine, Discectomy Musculoskeletal Surgical History: Reports: Hip Replacement, Other (See Below) Other Musculoskeletal Surgeries/Procedures:: Neuroplasty left thumb - SUBSTANCE USE Smoking Status *Q: Never Smoker Recreational Drug Use History: No - HOME MEDS Home Medications: Home Meds Aspirin [Halfprin] 81 mg PO QPM 12/07/14 [History] Cholecalciferol (Vitamin D3) [Vitamin D3] 1,000 unit PO DAILY 12/07/14 [History] Fish Oil/[place]-3 Fatty Acids [Fish Oil 1,000 MG] 1,200 tab PO DAILY 12/07/14 [ History] atorvaSTATin [Lipitor] 40 mg PO BEDTIME 12/07/14 [History] metFORMIN HCl [Metformin HCl] 1,000 tab PO BID@12/07/14 [History] Dulaglutide [Trulicity] 1.5 mg SUBCUT WEEKLY 10/30/17 [History] Ascorbate Calcium [Vitamin C] 1,000 mg PO DAILY 10/31/17 [History] Empagliflozin [Jardiance] 25 mg PO ACBREAKFAST 10/31/17 [History] Gabapentin [Neurontin] 300 mg PO BEDTIME 10/31/17 [History] Lisinopril 20 mg PO BEDTIME 10/31/17 [History] Multivit-Min/FA/Lycopene/Lut [Centrum Silver Tablet] 1 tab PO DAILY 10/31/17 [ History] Vitamin E 1,000 units PO DAILY 10/31/17 [History] Sildenafil Citrate 50 mg PO ASDIRECTED PRN 05/11/19 [History] - CURRENT (IN HOUSE) MEDS Current Meds: Current Medications Lactated Ringer's (Ringers, Lactated) 1,000 mls @ 125 mls/hr IV ASDIRECTED TRINA Discontinued Medications Fentanyl (Sublimaze) Confirm Administered Dose 100 mcg .ROUTE .STK-MED ONE Stop: 05/17/19 07:04 Cefoxitin Sodium 2 gm/ Premix 50 mls @ 100 mls/hr IV ONETIME ONE Stop: 05/17/19 08:29 Lidocaine (Xylocaine-Mpf 2%) Confirm Administered Dose 5 ml .ROUTE .STK-MED ONE Stop: 05/17/19 07:03 Propofol (Diprivan 20 Ml) Confirm Administered Dose 400 mg .ROUTE .STK-MED ONE Stop: 05/17/19 07:04
[2019-05-17] MEDS ORDERED: Sodium Chloride 0.9% 20 ML ONE (09:53)
[2019-05-17] MEDS ORDERED: cefOXitin 1 GM Vial ONE (09:53)
[2019-05-17] MEDS ORDERED: ePHEDrine 50 MG/ML SDV ONE (10:14)
[2019-05-17] MEDS ORDERED: Propofol 200 MG/20 ML SDV ONE (10:31)
--- NOTE | 2019-05-17 10:44 | PCM.OPNOTE ---
- General Post-Op/Procedure Note Date of Surgery/Procedure: 05/17/19 Operative Procedure(s): Colonoscopy Pre Op Diagnosis: Personal history of colon polyps. Post-Op Diagnosis: Sigmoid diverticulosis Anesthesia Technique: MAC (ASA III) Primary Surgeon: Omar Garrido Condition: Good Free Text/Narrative:: DICTATION [id number] CPT CODE 84252
[2019-05-17] MEDS ORDERED: Lactated Ringers 1,000 ML IV SCH (10:45)
--- NOTE | 2019-05-17 11:13 | PCM.POSTAN ---
POST ANESTHESIA ASSESSMENT - MENTAL STATUS Mental Status: Alert, Oriented - VITAL SIGNS SaO2: 98 - RESPIRATORY Respiratory Status: Respiratory Rate WNL, Airway Patent, O2 Saturation Stable - CARDIOVASCULAR CV Status: Pulse Rate WNL, Blood Pressure Stable - GASTROINTESTINAL GI Status: No Symptoms - POST OP HYDRATION Hydration Status: Adequate & Stable (Awake alert, questions answered. No signs or symptoms of anesthesia related problems)
--- NOTE | 2019-05-17 11:14 | PCM48HPAN ---
Post Anesthesia Note - EVALUATION WITHIN 48HRS OF ANESTHETIC Vital Signs in Normal Range: Yes Patient Participated in Evaluation: Yes Respiratory Function Stable: Yes Airway Patent: Yes Cardiovascular Function Stable: Yes Hydration Status Stable: Yes Pain Control Satisfactory: Yes Nausea and Vomiting Control Satisfactory: Yes Mental Status Recovered: Yes SaO2: 98 Resp Rate: 14 - COMMENTS/OBSERVATIONS Free Text/Narrative:: Awake alert, questions answered. No signs or symptoms of anesthesia related problems
[2019-05-17 11:35] VITALS: BP 111/56
--- NOTE | 2019-05-17 14:19 | OR ---
SURGEON: Omar Garrido M.D. DATE OF PROCEDURE: 05/17/2019 OPERATION PERFORMED: Colonoscopy. PRIMARY SURGEON: Omar Garrido MD. ANESTHESIA: MAC. ASA CLASSIFICATION: III. PREOPERATIVE DIAGNOSIS: Personal history of colon polyps. POSTOPERATIVE DIAGNOSIS: Sigmoid diverticulosis. DESCRIPTION OF PROCEDURE: The patient was taken to the endoscopy room and positioned on the endoscopy table in the left lateral decubitus position. Time-out was called for appropriate identification of the patient and procedure. Monitored anesthesia care was provided. The colonoscope was inserted into the rectum and advanced with moderate difficulty to the cecum. The cecum was identified by internal landmarks and external pressure. The colonoscope was retroflexed to visualize the ascending colon from below, then straightened and slowly withdrawn. The cecum, ascending colon, hepatic flexure, transverse colon, splenic flexure, and descending colon show no tumors, polyps, diverticula, or angiodysplastic changes. Sigmoid colon demonstrates moderate diverticular disease. No stricture, spasm, or bleeding was noted. No polyps were encountered in the sigmoid colon. The colonoscope was withdrawn to the rectum and retroflexed to visualize the anal orifice from above. No tumors, polyps, or acute hemorrhoidal changes are noted. The colonoscope was then straightened, the rectum aspirated, and the colonoscope removed. The patient tolerated the procedure well and was taken to recovery room in stable condition. CATA WANG /[id number]
== END 2019-05-17 11:32 | disposition home or self-care (01) ==
LOC: MW.SDS 08:41
PROVIDERS: ATTEND Surgery
DX: Z12.11 Encounter for screening for malignant neoplasm of colon (principal); K57.30 Diverticulosis of large intestine without perforation or abscess without bleeding; E78.5 Hyperlipidemia, unspecified; I10 Essential (primary) hypertension; E11.9 Type 2 diabetes mellitus without complications; G47.30 Sleep apnea, unspecified; Z86.010 Personal history of colon polyps; Z79.82 Long term (current) use of aspirin; Z79.899 Other long term (current) drug therapy; Z79.84 Long term (current) use of oral hypoglycemic drugs; Z99.89 Dependence on other enabling machines and devices
CPT/HCPCS: 45378; 82962; J0694; J2001; J2704; J3010; J7120; 00811

== ENCOUNTER 2020-10-10 11:30 | Day surgery (SDC) | payer MEDICARE, BC ==
[2020-10-10] MEDS ORDERED: Iopamidol 200-M 10 ML vial ITHECAL ONE (12:00)
[2020-10-10] MEDS ORDERED: Ropivacaine 0.5% 5 MG/ML 30 ML SDV INJECT ONE (12:00)
[2020-10-10] MEDS ORDERED: Lidocaine 2% 5 ML SDV INJECT ONE (12:00)
[2020-10-10] MEDS ORDERED: Betamethasone Acetate/Betamethasone Sod Phosphate 30 MG/5 ML MDV EPIDUR ONE (12:00)
--- NOTE | 2020-10-10 15:58 | OR ---
SURGEON: Lana Johnson D.O. DATE OF PROCEDURE: 10/10/2020 PRIMARY SURGEON: Lana Johnson DO ASSISTANTS: OR staff present: 1. Steve Skelton RN. 2. Talita Ortiz RN. 3. RT Tommy. WOUND CLASS: I. PREOPERATIVE DIAGNOSES: 1. Right hip pain. 2. Right hip osteoarthritis. POSTOPERATIVE DIAGNOSES: 1. Right hip pain. 2. Right hip osteoarthritis. PROCEDURES PERFORMED: 1. Right intra-articular hip injection. 2. Fluoroscopic guidance for needle placement. 3. Local for anesthesia. SCREENING QUESTIONS: The patient answered "No" to all the following questions: 1. Are you allergic to iodine, Betadine, or latex? 2. Do you have a bleeding disorder? 3. Do you have any joint replacements, heart valve replacements or a pacemaker? 4. Are you allergic to anti-inflammatories? 5. Are you on any blood thinners? 6. Do you have any current local or systemic infections? DESCRIPTION OF PROCEDURE: The patient had the procedure thoroughly explained including all possible risks, benefits and alternatives. Consent was signed in my clinic indicating understanding and willingness to proceed. The patient presented to [facility] [place] and was escorted to the dressing room to disrobe and change into a hospital gown. Preoperative vital signs were taken and stable. The patient reported that Valium was taken prior to the procedure. The patient was brought to the procedure room and placed in the supine position on the procedure room table. The hip landmarks were identified for the intra- articular injection and the femoral pulse was palpated and marked. The skin was marked assisted between the femoral pulse and greater trochanter for a skin wheal. The skin was sterilely prepped with ChloraPrep and draped. All personnel in the operating room were dressed in appropriate attire including surgical scrubs, head and shoe covers. This was to ensure sterility while in the treatment room. During the time fluoroscopy was in use, all personnel in the operating room wore lead mitchell with thyroid collars. Sterile technique was used during the procedure. The fluoroscope was placed for the intra-articular hip injection. There were no signs of infection at the site for needle insertion. The skin was anesthetized with 2% Lidocaine with a 27-gauge 1.5 inch needle. Then using a 22-gauge 3.5 inch spinal needle, I advanced to the capsule of the hip joint, a pop was felt. Under direct fluoroscopic guidance verifying needle positioning, 0.2 cubic centimeters increments of IsoVue-200 dye was injected and shown to outline the intra-articular space. No intravascular flow pattern was observed under live fluoroscopy. After negative aspiration, a mixture of 0.5% Ropivacaine, 2% Lidocaine, and 12 milligrams of Celestone was slowly injected in small increments after negative aspiration of heme. No paresthesias were noted. The needle was cleared prior to removal from the skin and no adverse reactions were noted. The patient was then brought to the recovery room awake and in good condition by my staff. After a brief stay in the recovery room, the patient was discharged to home. Both oral and written discharge and followup instructions were given to the patient. The patient will follow up in the clinic in two to three weeks postprocedure to evaluate the efficacy. The patient verbalized understanding including understanding those signs and symptoms that would require emergency care and knows how to contact the office if there are any problems or questions in the meantime. PREOPERATIVE PAIN: 7/10. POSTOPERATIVE PAIN: 4/10. FOLLOWUP: In the Pain Clinic in 3 weeks. HOGMAIA / FELIPE /[id number] NAILA
== END 2020-10-10 12:59 ==
LOC: MW.SDS 11:30
PROVIDERS: ATTEND Anesthesiology
DX: M16.11 Unilateral primary osteoarthritis, right hip (principal); E78.5 Hyperlipidemia, unspecified; I10 Essential (primary) hypertension; Z79.899 Other long term (current) drug therapy; E11.42 Type 2 diabetes mellitus with diabetic polyneuropathy